=== PATIENT | female | born 1990 | race Caucasian/White ===

== ENCOUNTER 2016-07-17 14:29 | Emergency (ER) | payer OTHER ==
[~2016-07-17] VITALS: Ht 167.6 cm; Wt 59.0 kg
[~2016-07-17 14:29] MED LIST: BACTRIM,SEPT1 TABLET PO; CHEWABLE MULTI1 EACH PO; CIPRO500 MG PO; CIPROFLOXACIN500 M1 PO; CLONIDINE HCL0.1 MG PO; DOCUSATE SODIU100 MG PO; FIORICET WI1 CAPSULE PO; FLEXERIL10 MG PO; FLEXERIL5 MG PO; FLOMAX0.4 MG PO; GABAPENTIN100 MG PO; HYDROCODON-ACE1 EAC7 PO; IBUPROFEN600 MG PO; IBUPROFEN800 MG PO; IMITREX25 MG PO; KEFLEX500 MG PO; LIDODERM 5% P1 PATCH TD; MACROBID100 MG PO; MOTRIN600 MG PO; Macrobid PO; NAPROSYN500 MG PO; NOHOMEMEDS; NORCO 5/3251 TABLET PO; OXAYDO5 MG PO; PEPCID20 MG PO; PERCOCET 5/31 TABLET PO; PYRIDIUM100 MG PO; Percocet 5/325,Endoc PO; REGLAN10 MG PO; TESSALON200 MG PO; TRAZODONE HCL50 MG PO; Tamiflu PO; ULTRAM50 MG PO; VALIUM5 MG PO; VIBRAMYCIN100 MG PO; ZITHROMAX Z-PA250 MG PO; ZOFRAN ODT4 MG PO; ZOFRAN ODT8 MG PO; no home med
[2016-07-17 16:08] LABS: HEMATOCRIT 36.6 % (36.0-46.0); MCH 30.1 PG (29.0-34.0); MCHC 33.6 G/DL (30.0-36.0); MCV 89.7 FL (83-99); MEAN PLAT.VOLUME 9.5 uM^3 (9.5-12.4); PLATELET COUNT 282 K/uL (156-360); RBC DIS.WIDTH-CV 13.1 % (11.8-14.6); RBC DIS.WIDTH-SD 41.9 % (39-53); RED BLOOD COUNT 4.08 M/uL (3.80-5.20); WHITE BLOOD COUNT 9.3 K/uL (4.1-10.2)
[2016-07-17 16:16] LABS: CHLORIDE 112 mEq/L (99-109); POTASSIUM 3.7 mEq/L (3.7-5.4); SODIUM 143 mEq/L (136-147)
[2016-07-17 16:19] LABS: ADD MIUA? YES; BILIRUBIN NEGATIVE; BLOOD NEGATIVE; COLOR YELLOW ((YELLOW)); GLUCOSE (STRIP) NEGATIVE; KETONES NEGATIVE; LEUKOCYTES NEGATIVE; NITRITE NEGATIVE; PROTEIN (STRIP) NEGATIVE; SPECIFIC GRAVITY 1.022 (1.000-1.030); UROBILINOGEN 0.2 MG/DL (0.2-1.0)
[2016-07-17 16:19] LABS: GLUCOSE 91 mg/dL (70-99)
[2016-07-17 16:20] LABS: ANION GAP 7 MEQ/L (2-14)
[2016-07-17 16:21] LABS: TOTAL BILIRUBIN 0.4 mg/dL (0.0-1.0)
[2016-07-17 16:22] LABS: ALKALINE PHOSPHATASE 69 IU/L (3-129); GFR ESTIMATE (CALCULATED) > 59 mL/min/
[2016-07-17 16:23] LABS: UREA NITROGEN (BUN) 7 mg/dL (9-23)
[2016-07-17 16:26] LABS: LIPASE 43 U/L (1.0-51.0)
[2016-07-17 16:31] LABS: QUANTITATIVE HCG < 4.0 MIU/ML
[2016-07-17 17:12] LABS: AMORPHOUS PHOSPHATE CRYSTALS 2+; BACTERIA 1+; CASTS NONE SEEN /LPF; CRYSTALS PRESENT; EPITHELIAL CELLS 1+; MUCUS 2+; RED BLOOD CELLS 0-5 /HPF (0-5); UCUL ADDED? NO; WHITE BLOOD CELLS 0-5 /HPF (0-5)
[2016-07-17] MEDS ORDERED: MIRALAX17 GM PO (17:48)
[2016-07-17 18:15] VITALS: BP 119/79
== END 2016-07-17 18:16 ==
LOC: EME 14:29
PROVIDERS: Emergency Medicine
DX: R10.31 Right lower quadrant pain (principal); K59.00 Constipation, unspecified; F17.200 Nicotine dependence, unspecified, uncomplicated; Z87.442 Personal history of urinary calculi; Z87.440 Personal history of urinary (tract) infections; Z88.1 Allergy status to other antibiotic agents; Z88.0 Allergy status to penicillin
CPT/HCPCS: 74177; 80053; 81003; 83690; 84702; 85027; 99281; 99284; J1885; J3010

== ENCOUNTER 2016-11-25 22:47 | Emergency (ER) | payer OTHER ==
[~2016-11-25] VITALS: Ht 167.6 cm; Wt 60.3 kg
[~2016-11-25 22:47] MED LIST changes: +MIRALAX17 GM PO
[2016-11-25 23:48] LABS: ADD MIUA? YES; BILIRUBIN NEGATIVE; BLOOD SMALL; COLOR YELLOW ((YELLOW)); GLUCOSE (STRIP) NEGATIVE; KETONES 5; LEUKOCYTES SMALL; NITRITE POSITIVE; PROTEIN (STRIP) 30; SPECIFIC GRAVITY 1.026 (1.000-1.030); UROBILINOGEN 0.2 MG/DL (0.2-1.0)
[2016-11-26 00:08] LABS: EPITHELIAL CELLS 2+ /HPF; MUCUS 4+ /LPF; RED BLOOD CELLS 0-5 /HPF (0-5); UCUL ADDED? YES
[2016-11-26 00:09] LABS: BACTERIA 3+ /HPF; CASTS PRESENT /LPF; HYALINE CASTS 0-5 /LPF
[2016-11-26 00:35] LABS: CHLORIDE 107 mEq/L (99-109); POTASSIUM 3.7 mEq/L (3.7-5.4); SODIUM 142 mEq/L (136-147)
[2016-11-26 00:37] LABS: GLUCOSE 132 mg/dL (70-99)
[2016-11-26 00:38] LABS: ANION GAP 10 MEQ/L (2-14)
[2016-11-26 00:39] LABS: TOTAL BILIRUBIN 0.3 mg/dL (0.0-1.0)
[2016-11-26 00:41] LABS: ALKALINE PHOSPHATASE 71 IU/L (3-129); GFR ESTIMATE (CALCULATED) > 59 mL/min/
[2016-11-26 00:42] LABS: UREA NITROGEN (BUN) 17 mg/dL (9-23)
[2016-11-26 00:51] LABS: QUANTITATIVE HCG < 4.0 MIU/ML
[2016-11-26 01:02] LABS: HEMATOCRIT 36.8 % (36.0-46.0); MCH 30.5 PG (29.0-34.0); MCHC 33.2 G/DL (30.0-36.0); PLATELET COUNT 251 K/uL (156-360); RBC DIS.WIDTH-CV 12.4 % (11.8-14.6); RBC DIS.WIDTH-SD 41.1 % (39-53); WHITE BLOOD COUNT 6.1 K/uL (4.1-10.2)
[2016-11-26] MEDS ORDERED: PERCOCET 5/31 TABLET PO (01:46)
[2016-11-26] MEDS ORDERED: ZOFRAN ODT4 MG PO (01:46)
[2016-11-26] MEDS ORDERED: CIPRO500 MG PO (01:46)
[2016-11-26 02:30] VITALS: BP 118/67
== END 2016-11-26 03:18 | disposition home or self-care (01) ==
LOC: EXP 22:47 → EME 22:47 → EXP 11-26 03:18
PROVIDERS: Physician Assistant
DX: N12 Tubulo-interstitial nephritis, not specified as acute or chronic (principal); F17.200 Nicotine dependence, unspecified, uncomplicated
CPT/HCPCS: 80053; 81003; 84702; 85027; 87077; 87086; 87186; 99281; 99284; J0744; J1885; J2270; J2405; J7030

== ENCOUNTER 2017-02-13 05:30 | Emergency (ER) | payer OTHER ==
[2017-02-13 06:12] LABS: EOSINOPHIL (%) 1.8 % (0-5); EOSINOPHIL COUNT 0.1 K/uL (0-0.3); HEMATOCRIT 34.7 % (36.0-46.0); IMMATURE GRANULOCYTE (%) 0.6 % (0.0-0.7); INSTRUMENT ABS NEUTROPHIL CT 3.8 K/uL; LYMPHOCYTE COUNT 2.5 K/uL (1.0-2.8); MCH 30.8 PG (29.0-34.0); MCHC 34.6 G/DL (30.0-36.0); MCV 89.2 FL (83-99); MEAN PLAT.VOLUME 9.8 uM^3 (9.5-12.4); MONOCYTE (%) 5.6 % (3-12); MONOCYTE COUNT 0.4 K/uL (0-0.8); NEUTROPHIL (%) 55.5 % (45-76); NEUTROPHIL COUNT 3.8 K/uL (1.8-6.4); PLATELET COUNT 260 K/uL (156-360); RBC DIS.WIDTH-CV 12.1 % (11.8-14.6); RBC DIS.WIDTH-SD 39.3 % (39-53); RED BLOOD COUNT 3.89 M/uL (3.80-5.20); WHITE BLOOD COUNT 6.8 K/uL (4.1-10.2)
[2017-02-13 06:19] LABS: ADD MIUA? YES; BILIRUBIN NEGATIVE; BLOOD SMALL; COLOR STRAW ((YELLOW)); GLUCOSE (STRIP) NEGATIVE; KETONES NEGATIVE; LEUKOCYTES NEGATIVE; NITRITE NEGATIVE; PROTEIN (STRIP) NEGATIVE; SPECIFIC GRAVITY 1.006 (1.000-1.030); UROBILINOGEN 0.2 MG/DL (0.2-1.0)
[2017-02-13 06:21] LABS: AMYLASE 66 IU/L (1-118); CHLORIDE 112 mEq/L (99-109); POTASSIUM 3.7 mEq/L (3.7-5.4)
[2017-02-13 06:21] LABS: BACTERIA NONE SEEN /HPF; EPITHELIAL CELLS RARE /HPF; MUCUS NONE SEEN /LPF; RED BLOOD CELLS 0-5 /HPF (0-5); UCUL ADDED? NO; WHITE BLOOD CELLS 0-5 /HPF (0-5)
[2017-02-13 06:22] LABS: SODIUM 145 mEq/L (136-147)
[2017-02-13 06:23] LABS: GLUCOSE 94 mg/dL (70-99)
[2017-02-13 06:25] LABS: ANION GAP 9 MEQ/L (2-14)
[2017-02-13 06:26] LABS: SERUM ETHYL ALCOHOL 232 mg/dL
[2017-02-13 06:27] LABS: GFR ESTIMATE (CALCULATED) > 59 mL/min/
[2017-02-13 06:28] LABS: ADD MEDTOX COMMENT Y; AMPHETAMINE NEGATIVE (500 ng/mL); BARBITURATES NEGATIVE (200 ng/mL); BENZODIAZEPINES NEGATIVE (150 ng/mL); COCAINE PRESUMPTIVE POSITIVE (150 ng/mL); INTERNAL CONTROLS VALID? YES; METHADONE NEGATIVE (200 ng/mL); METHAMPHETAMINE NEGATIVE (500 ng/mL); OPIATES (MORPHINE) NEGATIVE (100 ng/mL); OXYCODONE NEGATIVE (100 ng/mL); PHENCYCLIDINE NEGATIVE (25 ng/mL); PROPOXYPHENE NEGATIVE (300 ng/mL); THC CANNABINOIDS NEGATIVE (50 ng/mL); TRICYCLIC ANTIDEPRESSANTS NEGATIVE (300 ng/mL)
[2017-02-13 06:28] LABS: UREA NITROGEN (BUN) 7 mg/dL (9-23)
[2017-02-13 06:30] LABS: LIPASE 56 U/L (1.0-51.0)
[2017-02-13 06:36] LABS: QUANTITATIVE HCG < 4.0 MIU/ML
[2017-02-13] MEDS ORDERED: MOTRIN600 MG PO (11:58)
== END 2017-02-13 12:10 | disposition home or self-care (01) ==
LOC: TRA 05:30
PROVIDERS: Emergency Medicine
DX: S01.01XA Laceration without foreign body of scalp, initial encounter (principal); S20.219A Contusion of unspecified front wall of thorax, initial encounter; S40.212A Abrasion of left shoulder, initial encounter; R10.816 Epigastric abdominal tenderness; M54.2 Cervicalgia; V48.5XXA Car driver injured in noncollision transport accident in traffic accident, initial encounter; Y92.410 Unspecified street and highway as the place of occurrence of the external cause; F10.129 Alcohol abuse with intoxication, unspecified; Y90.7 Blood alcohol level of 200-239 mg/100 ml; F14.90 Cocaine use, unspecified, uncomplicated
CPT/HCPCS: 70450; 71260; 72125; 72129; 72132; 74177; 80048; 81003; 82150; 83690; 84702; 84999; 85025; 86900; 86901; 99281; 99285; G0480; J2405; J3010

== ENCOUNTER 2017-06-12 00:23 | Emergency (ER) | payer OTHER ==
[~2017-06-12] VITALS: Ht 167.6 cm; Wt 55.0 kg
[2017-06-12 01:26] LABS: EOSINOPHIL (%) 1.5 % (0-5); EOSINOPHIL COUNT 0.1 K/uL (0-0.3); HEMATOCRIT 38.1 % (36.0-46.0); IMMATURE GRANULOCYTE (%) 0.4 % (0.0-0.7); INSTRUMENT ABS NEUTROPHIL CT 5.1 K/uL; LYMPHOCYTE COUNT 1.8 K/uL (1.0-2.8); MCH 29.4 PG (29.0-34.0); MCHC 33.6 G/DL (30.0-36.0); MCV 87.6 FL (83-99); MEAN PLAT.VOLUME 9.7 uM^3 (9.5-12.4); MONOCYTE (%) 6.2 % (3-12); MONOCYTE COUNT 0.5 K/uL (0-0.8); NEUTROPHIL (%) 67.4 % (45-76); NEUTROPHIL COUNT 5.1 K/uL (1.8-6.4); PLATELET COUNT 303 K/uL (156-360); RBC DIS.WIDTH-CV 12.2 % (11.8-14.6); RBC DIS.WIDTH-SD 39.2 % (39-53); RED BLOOD COUNT 4.35 M/uL (3.80-5.20); WHITE BLOOD COUNT 7.6 K/uL (4.1-10.2)
[2017-06-12 01:38] LABS: CHLORIDE 104 mEq/L (99-109); POTASSIUM 3.6 mEq/L (3.7-5.4); SODIUM 141 mEq/L (136-147)
[2017-06-12 01:40] LABS: GLUCOSE 102 mg/dL (70-99)
[2017-06-12 01:41] LABS: ANION GAP 10 MEQ/L (2-14)
[2017-06-12 01:42] LABS: TOTAL BILIRUBIN 0.3 mg/dL (0.0-1.0)
[2017-06-12 01:44] LABS: ALKALINE PHOSPHATASE 82 IU/L (3-129); GFR ESTIMATE (CALCULATED) > 59 mL/min/
[2017-06-12 01:45] LABS: UREA NITROGEN (BUN) 8 mg/dL (9-23)
[2017-06-12 01:57] LABS: ERTH.SED.RATE 27 MM/HR (0-20)
[2017-06-12 02:29] LABS: SAMPLE HEMOLYSIS CHECK 0; SAMPLE ICTERIC CHECK 0; SAMPLE LIPEMIA CHECK 0
[2017-06-12 03:54] LABS: ADD MIUA? YES; BILIRUBIN NEGATIVE; BLOOD NEGATIVE; COLOR YELLOW ((YELLOW)); GLUCOSE (STRIP) NEGATIVE; INTERNAL CONTROL VALID? YES; KETONES NEGATIVE; LEUKOCYTES NEGATIVE; NITRITE NEGATIVE; PROTEIN (STRIP) 30; SPECIFIC GRAVITY 1.021 (1.000-1.030)
[2017-06-12 04:11] LABS: BACTERIA 1+ /HPF; EPITHELIAL CELLS 2+ /HPF; MUCUS RARE /LPF; RED BLOOD CELLS RARE /HPF (0-5); UCUL ADDED? NO; WHITE BLOOD CELLS NONE SEEN /HPF (0-5)
[2017-06-12 04:12] LABS: AMORPHOUS PHOSPHATE CRYSTALS 3+; CASTS NONE SEEN /LPF; CRYSTALS PRESENT
[2017-06-12] MEDS ORDERED: CLONIDINE HCL0.1 MG PO (05:01)
[2017-06-12] MEDS ORDERED: ZOFRAN ODT4 MG PO (05:01)
[2017-06-12 05:23] VITALS: BP 105/74
== END 2017-06-12 05:26 | disposition home or self-care (01) ==
LOC: EME 00:23
PROVIDERS: Emergency Medicine
DX: F11.23 Opioid dependence with withdrawal (principal); M54.9 Dorsalgia, unspecified; F41.9 Anxiety disorder, unspecified; F17.200 Nicotine dependence, unspecified, uncomplicated; Z87.442 Personal history of urinary calculi; Z87.440 Personal history of urinary (tract) infections; Z88.0 Allergy status to penicillin
CPT/HCPCS: 72129; 72132; 80053; 81003; 84703; 85025; 85651; 86141; 99281; 99285; J7030

== ENCOUNTER 2017-06-20 17:28 | Emergency (ER) | payer OTHER ==
[~2017-06-20] VITALS: Ht 167.6 cm; Wt 52.7 kg
[2017-06-20 17:57] LABS: MCH 30.2 PG (29.0-34.0); MCHC 34.6 G/DL (30.0-36.0); MCV 87.2 FL (83-99); MEAN PLAT.VOLUME 9.3 uM^3 (9.5-12.4); PLATELET COUNT 379 K/uL (156-360); RBC DIS.WIDTH-CV 12.4 % (11.8-14.6); RBC DIS.WIDTH-SD 39.4 % (39-53); WHITE BLOOD COUNT 19.3 K/uL (4.1-10.2)
[2017-06-20 18:09] LABS: CHLORIDE 109 mEq/L (99-109)
[2017-06-20 18:10] LABS: POTASSIUM 3.5 mEq/L (3.7-5.4); SODIUM 144 mEq/L (136-147)
[2017-06-20 18:12] LABS: GLUCOSE 96 mg/dL (70-99)
[2017-06-20 18:13] LABS: ANION GAP 12 MEQ/L (2-14)
[2017-06-20 18:14] LABS: TOTAL BILIRUBIN 0.4 mg/dL (0.0-1.0)
[2017-06-20 18:15] LABS: ALKALINE PHOSPHATASE 93 IU/L (3-129); GFR ESTIMATE (CALCULATED) > 59 mL/min/
[2017-06-20 18:17] LABS: UREA NITROGEN (BUN) 16 mg/dL (9-23)
[2017-06-20 18:19] LABS: LIPASE 68 U/L (1.0-51.0)
[2017-06-20 18:25] LABS: QUANTITATIVE HCG < 4.0 MIU/ML
[2017-06-20 19:24] LABS: ADD MIUA? YES; BILIRUBIN NEGATIVE; BLOOD NEGATIVE; COLOR YELLOW ((YELLOW)); GLUCOSE (STRIP) NEGATIVE; KETONES NEGATIVE; LEUKOCYTES NEGATIVE; NITRITE NEGATIVE; PROTEIN (STRIP) 30
[2017-06-20 19:44] LABS: BACTERIA NONE SEEN /HPF; EPITHELIAL CELLS 1+ /HPF; MUCUS 3+ /LPF; RED BLOOD CELLS 0-5 /HPF (0-5); WHITE BLOOD CELLS 0-5 /HPF (0-5)
[2017-06-20 20:01] LABS: SPECIFIC GRAVITY 1.078 (1.000-1.030)
[2017-06-20] MEDS ORDERED: MOTRIN600 MG PO (20:36)
[2017-06-20] MEDS ORDERED: ZOFRAN ODT4 MG PO (20:36)
[2017-06-20] MEDS ORDERED: BENTYL20 MG PO (20:36)
[2017-06-20 20:50] VITALS: BP 121/64
== END 2017-06-20 21:00 | disposition home or self-care (01) ==
LOC: EME 17:28
PROVIDERS: Physician Assistant Medical
DX: R10.11 Right upper quadrant pain (principal); R11.10 Vomiting, unspecified; R19.7 Diarrhea, unspecified; Z87.442 Personal history of urinary calculi; Z87.440 Personal history of urinary (tract) infections; G43.909 Migraine, unspecified, not intractable, without status migrainosus; F41.9 Anxiety disorder, unspecified; Z88.0 Allergy status to penicillin; F17.200 Nicotine dependence, unspecified, uncomplicated
CPT/HCPCS: 74177; 80053; 81003; 83690; 84702; 85027; 99281; 99285; J1885; J2405; J3010; J7030

== ENCOUNTER 2017-06-30 21:19 | Emergency (ER) | payer OTHER ==
[~2017-06-30] VITALS: Ht 167.6 cm; Wt 54.1 kg
[~2017-06-30 21:19] MED LIST changes: +BENTYL20 MG PO
[2017-06-30 21:27] VITALS: BP 112/78
== END 2017-06-30 22:48 | disposition left against medical advice (07) ==
LOC: EME 21:19
DX: R06.02 Shortness of breath (principal); R11.10 Vomiting, unspecified; Z91.018 Allergy to other foods; Z53.21 Procedure and treatment not carried out due to patient leaving prior to being seen by health care provider

== ENCOUNTER 2017-11-23 21:57 | Emergency (ER) | payer OTHER ==
[~2017-11-23] VITALS: Ht 167.6 cm; Wt 63.1 kg
[2017-11-24] MEDS ORDERED: FIORICET 50-301 EAC1 PO (02:03)
[2017-11-24] MEDS ORDERED: ZOFRAN4 MG PO (02:03)
[2017-11-24] MEDS ORDERED: MOTRIN800 MG PO (02:03)
[2017-11-24 02:56] VITALS: BP 111/73
== END 2017-11-24 02:56 | disposition home or self-care (01) ==
LOC: EME 21:57
DX: R51 Headache (principal); Z86.69 Personal history of other diseases of the nervous system and sense organs; F43.10 Post-traumatic stress disorder, unspecified; F17.200 Nicotine dependence, unspecified, uncomplicated; Z87.442 Personal history of urinary calculi; Z87.440 Personal history of urinary (tract) infections; Z87.42 Personal history of other diseases of the female genital tract; Z90.49 Acquired absence of other specified parts of digestive tract; Z88.0 Allergy status to penicillin; J30.89 Other allergic rhinitis
CPT/HCPCS: 99281; 99285; J0780; J1200; J1885; J7120